=== PATIENT | female | born 1955 | race Caucasian/White ===

== ENCOUNTER 2020-02-12 17:13 | Inpatient (IN) ==
[2020-02-12] MEDS ORDERED: Morphine Sulfate 2 MG/ML SYRINGE IVP PRN (17:34)
[2020-02-12] MEDS ORDERED: Ibuprofen 600 MG TABLET PO ONE (17:35)
[2020-02-12 17:46] LABS: Basophils # 0.1 K/mcL (0.0-0.2); Basophils % 0.4 %; Eosinophils % 0.1 %; Hematocrit 45.5 % (35.3-44.9); Hemoglobin 14.7 g/dL (11.5-15.4); Immature Granulocytes % 0.4 % (0-4); Lymphocytes # 2.3 K/mcL (0.6-4.6); Lymphocytes % 16.1 %; Mean Corpuscular HGB Conc 32.3 g/dL (31.6-35.5); Mean Corpuscular Hemoglobin 27.1 pg (28.0-33.3); Mean Corpuscular Volume 83.9 fL (83.0-100.0); Mean Platelet Volume 10.3 fL (9.4-12.4); Monocytes # 1.7 K/mcL (0.0-1.3); Monocytes % 11.7 %; Neutrophils # 10.2 K/mcL (1.6-8.9); Platelet Count 359 K/mcL (140-400); Red Blood Count 5.42 M/mcL (3.82-4.97); Red Cell Distribution Width 12.1 % (11.5-14.5); Segmented Neutrophils % 71.3 %; White Blood Count 14.3 K/mcL (4.3-11.1)
[2020-02-12 18:08] LABS: BUN/Creatinine Ratio 30 (6-26); Blood Urea Nitrogen 22 mg/dL (8-23); Calcium 9.6 mg/dL (8.6-10.3); Carbon Dioxide 21 mEq/L (23-29); Chloride 96 mEq/L (98-107); Glucose 338 mg/dL (70-105); Osmolality,Calculated 289 (280-300); Sodium 131 mEq/L (136-145); Troponin I < 0.03 ng/mL (< 0.04); eGFR For African Americans > 60 (> 60); eGFR For Non-African Americans > 60 (> 60)
[2020-02-12] MEDS ORDERED: 0.9 % Sodium Chloride 500 ML IV ONE (18:34)
[2020-02-12 20:03] LABS: Thyroid Stimulating Hormone 2.524 mcIU/mL (0.340-5.600)
[2020-02-12 20:37] LABS: Bilirubin,Urine Negative (Negative); Blood,Urine Negative (Negative); Clarity,Urine Clear (Clear); Color,Urine Colorless (Yellow); Glucose,Urine (UA) >=1000 mg/dL (Normal); Ketones,Urine 150 mg/dL (Negative); Leukocyte Esterase,Urine Negative (Negative); Nitrite,Urine Negative (Negative); PH,Urine 5.5 pH Units (5.0-8.0); Protein,Urine Trace mg/dL (Neg-Trace); Specific Gravity,Urine > 1.030 (1.010-1.025); Urobilinogen,Urine Normal (Normal)
[2020-02-12 20:46] LABS: RBC,Urine 0-3 per hpf (0-3); Squamous Epithelial Cell,Urine Few per hpf (None-Few); WBC,Urine 0-3 per hpf (0-3)
[2020-02-12] MEDS ORDERED: Naloxone 0.4 MG/ML INJ IVP PRN (20:47)
[2020-02-12] MEDS ORDERED: Ondansetron 4 MG/2 ML VIAL IVP PRN (20:47)
[2020-02-12] MEDS ORDERED: 0.9 % Sodium Chloride 1,000 ML IVC SCH (21:00)
[2020-02-12] MEDS ORDERED: *HR* Heparin 5,000 UNIT/ML VIAL SQ ONE (23:15)
[2020-02-12] MEDS ORDERED: D5% in Water 1,000 ML IVC PRN (23:18)
[2020-02-12] MEDS ORDERED: Dextrose Gel 15 GM/37.5 ML TUBE PO PRN ×2 (23:18)
[2020-02-12] MEDS ORDERED: *HR* Dextrose 50 % in Water (Vial) 50 ML VIAL IVP PRN (23:18)
[2020-02-12] MEDS: Insulin DETEMIR 100 UNIT/ML X5UNITS SQ SCH (23:53)
[2020-02-13] MEDS: Insulin LISPRO 300 UNITS/3 ML VIAL SQ SCH ×4 (01:01→12:45)
[2020-02-13] MEDS ORDERED: lisinopriL 10 MG TABLET PO ONE (04:05)
[2020-02-13 06:45] LABS: INR 1.1; Prothrombin Time 12.5 Seconds (9.4-12.1)
[2020-02-13 06:48] LABS: Activated Partial Thrombo Time 29.4 Seconds (26.0-36.0)
[2020-02-13 06:56] LABS: Basophils # 0.1 K/mcL (0.0-0.2); Basophils % 0.5 %; Eosinophils # 0.1 K/mcL (0.0-0.6); Eosinophils % 0.8 %; Hematocrit 39.1 % (35.3-44.9); Hemoglobin 12.6 g/dL (11.5-15.4); Immature Granulocytes % 0.3 % (0-4); Lymphocytes # 2.8 K/mcL (0.6-4.6); Lymphocytes % 27.2 %; Mean Corpuscular HGB Conc 32.2 g/dL (31.6-35.5); Mean Corpuscular Hemoglobin 27.8 pg (28.0-33.3); Mean Corpuscular Volume 86.1 fL (83.0-100.0); Mean Platelet Volume 10.3 fL (9.4-12.4); Monocytes # 1.4 K/mcL (0.0-1.3); Monocytes % 13.8 %; Neutrophils # 5.9 K/mcL (1.6-8.9); Platelet Count 299 K/mcL (140-400); Red Blood Count 4.54 M/mcL (3.82-4.97); Red Cell Distribution Width 11.9 % (11.5-14.5); Segmented Neutrophils % 57.4 %; White Blood Count 10.2 K/mcL (4.3-11.1)
[2020-02-13 07:05] LABS: Alanine Aminotransferase 16 Units/L (7-52); Albumin 3.4 g/dL (3.5-5.7); Albumin/Globulin Ratio 1.3 (1.1-2.2); Alkaline Phosphatase 54 Units/L (34-104); Aspartate Amino Transferase 12 Units/L (13-39); BUN/Creatinine Ratio 31 (6-26); Bilirubin,Total 0.9 mg/dL (0.3-1.0); Blood Urea Nitrogen 20 mg/dL (8-23); Calcium 8.6 mg/dL (8.6-10.3); Carbon Dioxide 24 mEq/L (23-29); Chloride 103 mEq/L (98-107); Globulin 2.6 g/dL (2.4-3.5); Glucose 199 mg/dL (70-105); Magnesium 1.9 mg/dL (1.6-2.6); Osmolality,Calculated 288 (280-300); Phosphorous 2.8 mg/dL (2.7-4.5); Potassium 3.1 mEq/L (3.5-5.1); Sodium 135 mEq/L (136-145); eGFR For African Americans > 60 (> 60); eGFR For Non-African Americans > 60 (> 60)
[2020-02-13 09:21] LABS: Estimated Average Glucose 344 mg/dl
[2020-02-13] MEDS: *HR* Heparin 5,000 UNIT/ML VIAL SQ SCH (12:41)
[2020-02-13] MEDS ORDERED: Ringers Solution, Lactated 1,000 ML IVC SCH (13:30)
[2020-02-13] MEDS ORDERED: Vancomycin 1,000 MG VIAL ONE (17:25)
[2020-02-13] MEDS ORDERED: Ondansetron 4 MG/2 ML VIAL IVP ONE ×4 (17:26→22:11)
[2020-02-13] MEDS ORDERED: *HR* Promethazine 25 MG/ML VIAL IVP PRN ×4 (17:26→22:11)
[2020-02-13] MEDS ORDERED: Morphine Sulfate 2 MG/ML SYRINGE IVP PRN ×2 (17:26→22:11)
[2020-02-13] MEDS ORDERED: *HR* OxyCODONE Immed Rel 5 MG TABLET PO PRN ×4 (17:26→22:11)
[2020-02-13] MEDS ORDERED: *HR* FentaNYL (PF) 100 MCG/2 ML VIAL ONE ×2 (17:51→19:39)
[2020-02-13] MEDS ORDERED: Lidocaine -MPF 2% 2 ML VIAL ONE (17:51)
[2020-02-13] MEDS ORDERED: *HR* Succinylcholine 200 MG/10 ML VIAL IVP ONE (17:51)
[2020-02-13] MEDS ORDERED: Lidocaine -MPF 4% 5 ML AMPUL ONE (17:51)
[2020-02-13] MEDS ORDERED: *HR* Propofol 200 MG/20 ML VIAL IVP ONE (17:52)
[2020-02-13] MEDS ORDERED: *HR* HYDROmorphone PF 0.5 MG/0.5 ML SYRINGE IVP PRN ×2 (17:54→22:11)
[2020-02-13] MEDS ORDERED: Insulin LISPRO 300 UNITS/3 ML VIAL SQ SCH (18:00)
[2020-02-13] MEDS ORDERED: ceFAZolin 2,000 MG in Water for inj. (sterile) 20 ML IVP ONE ×2 (19:01→22:11)
[2020-02-13] MEDS ORDERED: *HR* PHENYLEPHRINE 1,000 MCG/10 ML SYRINGE IVP ONE (19:12)
[2020-02-13] MEDS ORDERED: Ethanol\\Acetic Acid\\Na Ace\\Ben 1,000 ML IRRIG.SOLN IR ONE (19:23)
[2020-02-13] MEDS ORDERED: EPHEDrine 50 MG/ML VIAL ONE (19:24)
[2020-02-13] MEDS ORDERED: *HR* Labetalol 20 MG/4 ML SYRINGE IVP ONE ×2 (20:50→20:51)
[2020-02-13] MEDS ORDERED: *HR* Dextrose 50 % in Water (Vial) 50 ML VIAL IVP PRN (22:11)
[2020-02-13] MEDS ORDERED: MOM Conc 10 ML UD.LIQ PO PRN (22:11)
[2020-02-13] MEDS ORDERED: Dextrose Gel 15 GM/37.5 ML TUBE PO PRN ×2 (22:11)
[2020-02-13] MEDS ORDERED: D5% in Water 1,000 ML IVC PRN (22:11)
[2020-02-13] MEDS ORDERED: Naloxone 0.4 MG/ML INJ IVP PRN (22:11)
[2020-02-13] MEDS ORDERED: Sennosides 8.6 MG TABLET PO PRN (22:11)
[2020-02-14] MEDS ORDERED: *HR* Heparin 5,000 UNIT/ML VIAL SQ SCH (06:00)
[2020-02-14 07:02] LABS: Basophils % 0.4 %; Eosinophils % 0.2 %; Hematocrit 36.7 % (35.3-44.9); Hemoglobin 11.7 g/dL (11.5-15.4); Immature Granulocytes % 0.6 % (0-4); Lymphocytes # 1.8 K/mcL (0.6-4.6); Lymphocytes % 17.3 %; Mean Corpuscular HGB Conc 31.9 g/dL (31.6-35.5); Mean Corpuscular Hemoglobin 27.3 pg (28.0-33.3); Mean Corpuscular Volume 85.7 fL (83.0-100.0); Mean Platelet Volume 10.2 fL (9.4-12.4); Monocytes # 1.5 K/mcL (0.0-1.3); Monocytes % 14.5 %; Neutrophils # 6.8 K/mcL (1.6-8.9); Platelet Count 302 K/mcL (140-400); Red Blood Count 4.28 M/mcL (3.82-4.97); Red Cell Distribution Width 11.9 % (11.5-14.5); White Blood Count 10.2 K/mcL (4.3-11.1)
[2020-02-14 07:29] LABS: BUN/Creatinine Ratio 35 (6-26); Blood Urea Nitrogen 18 mg/dL (8-23); Calcium 8.5 mg/dL (8.6-10.3); Carbon Dioxide 22 mEq/L (23-29); Chloride 101 mEq/L (98-107); Glucose 224 mg/dL (70-105); Osmolality,Calculated 285 (280-300); Sodium 133 mEq/L (136-145); eGFR For African Americans > 60 (> 60); eGFR For Non-African Americans > 60 (> 60)
[2020-02-14] MEDS ORDERED: Ondansetron 4 MG/2 ML VIAL IVP PRN (08:00)
[2020-02-14] MEDS: CeFAZolin 2 GM/120 ML BAG IVPB SCH ×2 (08:23)
[2020-02-14] MEDS: Aspirin Enteric Coated 325 MG Tablet PO SCH (08:23)
[2020-02-14] MEDS: Insulin LISPRO 300 UNITS/3 ML VIAL SQ SCH ×3 (08:27→17:13)
[2020-02-14] MEDS ORDERED: Insulin LISPRO 300 UNITS/3 ML VIAL SQ SCH ×2 (17:33)
[2020-02-14] MEDS: Ringers Solution, Lactated 1,000 ML IVC SCH (19:06)
[2020-02-14] MEDS: Insulin DETEMIR 100 UNIT/ML X5UNITS SQ SCH (19:07)
[2020-02-14] MEDS: *HR* Heparin 5,000 UNIT/ML VIAL SQ SCH (19:07)
[2020-02-14] MEDS ORDERED: Insulin DETEMIR 100 UNIT/ML X5UNITS SQ SCH (21:00)
[2020-02-14] MEDS: ceFAZolin 2,000 MG in 0.9 % Sodium Chloride 100 ML IVPB SCH (21:26)
[2020-02-15] MEDS: Ringers Solution, Lactated 1,000 ML IVC SCH (00:34)
[2020-02-15 01:20] LABS: Hematocrit 33.6 % (35.3-44.9); Hemoglobin 11.1 g/dL (11.5-15.4); Mean Corpuscular Hemoglobin 27.9 pg (28.0-33.3); Mean Corpuscular Volume 84.4 fL (83.0-100.0); Mean Platelet Volume 9.9 fL (9.4-12.4); Platelet Count 304 K/mcL (140-400); Red Blood Count 3.98 M/mcL (3.82-4.97); Red Cell Distribution Width 11.9 % (11.5-14.5); White Blood Count 13.5 K/mcL (4.3-11.1)
[2020-02-15 01:41] LABS: BUN/Creatinine Ratio 30 (6-26); Blood Urea Nitrogen 16 mg/dL (8-23); Carbon Dioxide 22 mEq/L (23-29); Chloride 100 mEq/L (98-107); Glucose 242 mg/dL (70-105); Osmolality,Calculated 279 (280-300); Potassium 3.6 mEq/L (3.5-5.1); Sodium 130 mEq/L (136-145); eGFR For African Americans > 60 (> 60); eGFR For Non-African Americans > 60 (> 60)
[2020-02-15] MEDS: ceFAZolin 2,000 MG in 0.9 % Sodium Chloride 100 ML IVPB SCH (04:30)
[2020-02-15] MEDS ORDERED: amLODIPine 5 MG TABLET PO SCH (09:00)
[2020-02-15] MEDS: Aspirin Enteric Coated 325 MG Tablet PO SCH (10:30)
[2020-02-15 10:52] VITALS: BP 169/78
[2020-02-15] MEDS ORDERED: lisinopriL 5 MG TABLET PO SCH (11:00)
[2020-02-15 11:49] LABS: Chol/HDL Ratio 5.3 (0-4.9); Cholesterol 147 mg/dL (< 200); HDL Cholesterol 28 mg/dL (40-59); LDL Cholesterol,Calculated 94 mg/dL (< 100); Triglycerides 126 mg/dL (< 150)
[2020-02-15] MEDS ORDERED: Insulin NPH/REG 70/30 100 UNIT/ML (x5UNIT) SQ SCH (12:00)
== END 2020-02-15 17:00 | disposition home or self-care (01) | DRG 301 ==
LOC: EMEROOARM 17:13 → 3NENU 17:13 → SUATTDRO 02-13 13:34
PROVIDERS: ADMIT Student in an Organized Health Care Education/Training Program; ATTEND Internal Medicine